=== PATIENT | female | born 1965 | race Caucasian/White ===

== ENCOUNTER 2016-09-15 10:34 | Emergency (ER) | payer BC ==
--- NOTE | 2016-09-17 01:33 | ER ---
ADMIT: 09/15/2016 RM/LOC: ER [facility] MR#: [id number] [facility] [address] [place] [id number] PRACHI SOTO [address] [place] [id number] Emergency Room Report SEX: F AGE: 51 : 1965 DATE: 09/15/2016 TIME: 1034. Please refer to my T-sheet for complete H and P. HISTORY OF PRESENT ILLNESS: Briefly, patient is a 51-year-old who was driving through. She is a dialysis patient. She scratched her fistula in her right arm as she was driving past [place] and it started bleeding heavily. She called an ambulance. They brought her in. They had stopped it with pressure dressing. No other complaints now. No other complaints at all. She is not on a blood thinner. PHYSICAL EXAMINATION: VITAL SIGNS: Stable. Her blood pressure is 185/89. GENERAL: No acute distress. Her right arm fistula is not bleeding at this time but has a pressure dressing on. She is neurovascularly intact distally. EMERGENCY DEPARTMENT COURSE: I removed the pressure dressing. She really did not have any bleeding at the very 1st few seconds and then it started oozing from the site again. I took a Silvadene, put a small dab right on the bleeding site, started bleeding worse. At that point, we put a pressure dressing on for about 30-40 minutes, removed. The bleeding had ceased. We put a hearing instrument specialist pressure dressing on. I talked to her about the risk of the fistula being close. She understood that and she was comfortable going home. ASSESSMENT: Right arm fistula bleeding resolved in the Emergency Department with the treatment rendered by myself. PLAN: Return if worse. 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 Ricardo Willoughby MD/ chino JOB #: [id number] CC: Ricardo Willoughby MD, Attending Physician Melodie Naranjo MD, Family Physician
== END 2016-09-15 12:10 | disposition home or self-care (01) ==
LOC: ER 10:34
DX: T82.838A Hemorrhage due to vascular prosthetic devices, implants and grafts, initial encounter (principal); E11.9 Type 2 diabetes mellitus without complications; Z88.8 Allergy status to other drugs, medicaments and biological substances